=== PATIENT | female | born 1985 | race Caucasian/White ===

== ENCOUNTER → 2018-07-10 | Outpatient (CLI) | payer BC | LOC: RAD 13:40 | DX: R05 Cough (principal) ==

== ENCOUNTER → 2020-05-28 | Outpatient (CLI) | payer BC ==
[2020-05-28 10:16] LABS: EOS # 0.2 (0.04-0.40); HEMATOCRIT 45.7 % (37.0-47.0); HEMOGLOBIN 15.3 g/dL (12.5-16.0); LYMPH# 2.8 (1.50-4.00); MEAN CELL VOLUME 90 fl (78-100); MEAN CORPUSCULAR HEMOGLOBIN 30 pg (27-31); MEAN CORPUSCULAR HGB CONC 34 g/dL (33-37); MEAN PLATELET VOLUME 10.1 fl (7.4-10.4); MONO # 0.5 (0.20-0.80); NEU # 3.4 (1.40-6.50); PLATELET COUNT 260 K/mm3 (130-400); RED BLOOD COUNT 5.06 M/mm3 (4.10-5.30); RED CELL DISTRIBUTION WIDTH 12.3 % (11.5-14.5)
[2020-05-28 10:23] LABS: POTASSIUM 4.2 mmol/L (3.5-5.1)
[2020-05-28 10:24] LABS: ALBUMIN 4.3 g/dL (3.5-5.0)
[2020-05-28 10:25] LABS: CALCIUM 8.7 mg/dL (8.3-10.5)
[2020-05-28 10:28] LABS: TOTAL BILIRUBIN 0.4 mg/dL (0.2-1.2)
== END ==
LOC: LAB 10:05
PROVIDERS: Family Medicine
DX: Z00.00 Encounter for general adult medical examination without abnormal findings (principal); R53.83 Other fatigue; E78.5 Hyperlipidemia, unspecified

== ENCOUNTER 2020-11-15 18:17 | Emergency (ER) | payer BC ==
[2020-11-15 19:26] LABS: BASO # 0.02 (0.02-0.10); EOS # 0.07 (0.04-0.40); HEMOGLOBIN 15.4 g/dL (12.5-16.0); LYMPH# 1.58 (1.50-4.00); MEAN CELL VOLUME 91 fl (78-100); MEAN CORPUSCULAR HEMOGLOBIN 31 pg (27-31); MEAN CORPUSCULAR HGB CONC 34 g/dL (33-37); MEAN PLATELET VOLUME 10.6 fl (7.4-10.4); MONO # 0.41 (0.20-0.80); NEU # 4.61 (1.40-6.50); PLATELET COUNT 246 K/mm3 (130-400); RED BLOOD COUNT 4.95 M/mm3 (4.10-5.30); RED CELL DISTRIBUTION WIDTH 12.3 % (11.5-14.5); WHITE BLOOD COUNT 6.7 K/mm3 (4.8-10.8)
[2020-11-15 19:37] LABS: ALBUMIN 4.4 g/dL (3.5-5.0); POTASSIUM 3.3 mmol/L (3.5-5.1)
[2020-11-15 19:38] LABS: CALCIUM 9.6 mg/dL (8.3-10.5)
[2020-11-15 19:39] LABS: TOTAL PROTEIN 7.6 g/dL (6.4-8.3)
[2020-11-15 19:41] LABS: TOTAL BILIRUBIN 0.7 mg/dL (0.2-1.2)
[2020-11-15 20:08] VITALS: BP 137/67
[2020-11-15 20:16] LABS: URINE APPEARANCE HAZY; URINE BILIRUBIN NEGATIVE (NEGATIVE); URINE BLOOD NEGATIVE (NEGATIVE); URINE COLOR YELLOW; URINE GLUCOSE NEGATIVE (NEGATIVE); URINE KETONE 1+ (NEGATIVE); URINE LEUKOCYTE ESTERASE NEGATIVE (NEGATIVE); URINE NITRATE NEGATIVE (NEGATIVE); URINE PROTEIN(semi-quant) TRACE mg/dL (NEGATIVE); URINE UROBILINOGEN NORMAL (NORMAL)
[2020-11-15 20:17] LABS: URINE MUCUS PRESENT (NOT PRESENT)
== END 2020-11-15 20:08 | disposition home or self-care (01) ==
LOC: ED 18:17
PROVIDERS: Nurse Practitioner
DX: F41.9 Anxiety disorder, unspecified (principal); R55 Syncope and collapse; R56.9 Unspecified convulsions

== ENCOUNTER 2020-12-04 19:10 | Emergency (ER) | payer BC ==
[2020-12-04] MEDS ORDERED: XANAX 1MG1 MG PO (19:43)
[2020-12-04] MEDS ORDERED: VYVANSE60 MG PO (19:43)
[2020-12-04] MEDS ORDERED: DIETHYLPROPION25 M3 PO (19:44)
[2020-12-04] MEDS ORDERED: PREDNISONE20 MG PO (20:36)
[2020-12-04 20:45] VITALS: BP 109/68
== END 2020-12-04 20:45 | disposition home or self-care (01) ==
LOC: ED 19:10
DX: S01.111A Laceration without foreign body of right eyelid and periocular area, initial encounter (principal); L23.7 Allergic contact dermatitis due to plants, except food; F32.9 Major depressive disorder, single episode, unspecified; F41.9 Anxiety disorder, unspecified; Z79.899 Other long term (current) drug therapy; F17.210 Nicotine dependence, cigarettes, uncomplicated; W21.07XA Struck by softball, initial encounter; Y93.64 Activity, baseball
CPT/HCPCS: J7512

== ENCOUNTER 2021-09-17 23:37 | Emergency (ER) | payer BC ==
[~2021-09-17] VITALS: Ht 167.6 cm; Wt 61.7 kg
[~2021-09-17 23:37] MED LIST: DIETHYLPROPION25 M3 PO; PREDNISONE20 MG PO; VYVANSE60 MG PO; XANAX 1MG1 MG PO
[2021-09-17] MEDS ORDERED: KEPPRA250 MG PO (23:53)
[2021-09-17] MEDS ORDERED: LEVETIRACETAM500 M2 PO (23:54)
[2021-09-18] VITALS: BP 100/59
== END 2021-09-18 00:53 | disposition home or self-care (01) ==
LOC: ED 23:37
DX: S61.216A Laceration without foreign body of right little finger without damage to nail, initial encounter (principal); F17.200 Nicotine dependence, unspecified, uncomplicated; Z28.310 Unvaccinated for COVID-19; W01.198A Fall on same level from slipping, tripping and stumbling with subsequent striking against other object, initial encounter

== ENCOUNTER 2021-09-19 23:03 | Emergency (ER) | payer BC ==
[~2021-09-19] VITALS: Ht 167.6 cm; Wt 61.7 kg
[~2021-09-19 23:03] MED LIST changes: +KEPPRA250 MG PO; +LEVETIRACETAM500 M2 PO
[2021-09-19 23:26] VITALS: BP 105/69
== END 2021-09-20 00:27 | disposition home or self-care (01) ==
LOC: ED 23:03
DX: S61.216A Laceration without foreign body of right little finger without damage to nail, initial encounter (principal); Z28.310 Unvaccinated for COVID-19; X58.XXXA Exposure to other specified factors, initial encounter

== ENCOUNTER 2021-09-22 21:08 | Emergency (ER) | payer SELFPAY ==
[~2021-09-22] VITALS: Ht 167.6 cm; Wt 61.3 kg
[2021-09-22] MEDS ORDERED: CEPHALEXIN500 M1 PO (22:35)
[2021-09-22 22:50] VITALS: BP 117/78
== END 2021-09-22 22:50 | disposition home or self-care (01) ==
LOC: ED 21:08
DX: R05.9 Cough, unspecified (principal)

== ENCOUNTER 2021-11-16 21:57 | Emergency (ER) | payer SELFPAY ==
[~2021-11-16 21:57] MED LIST changes: +CEPHALEXIN500 M1 PO
[2021-11-16 22:44] VITALS: BP 112/72
[2021-11-16] MEDS ORDERED: IBU800 M1 PO (22:48)
== END 2021-11-17 10:02 | disposition home or self-care (01) ==
LOC: ED 21:57
DX: M25.531 Pain in right wrist (principal); M79.644 Pain in right finger(s); F17.290 Nicotine dependence, other tobacco product, uncomplicated; Z28.310 Unvaccinated for COVID-19; W13.8XXA Fall from, out of or through other building or structure, initial encounter; Y92.009 Unspecified place in unspecified non-institutional (private) residence as the place of occurrence of the external cause